=== PATIENT | male | born 1955 | race Hispanic/Latino ===

== ENCOUNTER → 2018-09-05 | Outpatient (CLI) | payer OTHER ==
[~2018-09-05] MED LIST: AMLO5TAB7 PO; AMOX-426 PO; ASPI-555 PO; CARV25TA PO; FURO40TA5 PO; GLIP5TAB11 PO; HYDR-4154 PO; ISOS30TA11 PO; NITR0.4T SL; SIMV20TA6 PO
== END | disposition home or self-care (01) ==
LOC: SHCH 15:14
PROVIDERS: ATTEND Internal Medicine Cardiovascular Disease
DX: I25.5 Ischemic cardiomyopathy (principal); Z95.0 Presence of cardiac pacemaker
CPT/HCPCS: 36415; 82565; 84520; 93306

== ENCOUNTER → 2018-09-05 | Outpatient (CLI) | payer OTHER ==
[2018-09-05 12:24] LABS: CREATININE 1.9 mg/dL (0.5-1.5)
== END | disposition home or self-care (01) ==
LOC: LAB 09:41
PROVIDERS: ATTEND Otolaryngology Plastic Surgery within the Head & Neck
DX: H90.3 Sensorineural hearing loss, bilateral (principal)
CPT/HCPCS: 36415; 82565; 84520

== ENCOUNTER 2019-03-21 19:30 | Inpatient (IN) | payer OTHER ==
[~2019-03-21] VITALS: Ht 180.3 cm; Wt 166.6 kg
[~2019-03-21 19:30] MED LIST changes: -AMLO5TAB7 PO; +AMLO5TAB9 PO
[2019-03-21] MEDS ORDERED: FUROSEMIDE 10 MG/ML 4ML VIAL ONE (19:42)
[2019-03-21] MEDS ORDERED: ASPIRIN 325 MG TABLET ONE (19:42)
[2019-03-21 20:04] LABS: BASOPHILS % (AUTO) 1.3 % (0.0-5.0); EOSINOPHILS % (AUTO) 2.2 % (0.0-8.0); HEMATOCRIT 34.4 % (42-54); LYMPHOCYTES % (AUTO) 13.6 % (21.0-51.0); MEAN CORPUSCULAR HGB CONC 31.5 g/dL (32.0-36.0); MEAN CORPUSCULAR VOLUME 79.2 fL (79-99); MONOCYTES % (AUTO) 9.5 % (3.0-13.0); NEUTROPHILS % (AUTO) 73.4 % (40.0-77.0); PLATELET COUNT (AUTO) 200 K/uL (130-400); RED BLOOD CELL COUNT(AUTO) 4.34 MIL/uL (4.50-6.20); RED CELL DISTRIBUTION WIDTH 18.4 % (11.0-15.5); WHITE BLOOD COUNT (AUTO) 7.6 K/uL (4.8-10.8)
[2019-03-21 20:17] LABS: CREATININE 1.6 mg/dL (0.5-1.5); POTASSIUM 3.7 mmol/L (3.5-5.1)
[2019-03-21 20:20] LABS: INR 1.32 (0.85-1.15); PARTIAL THROMBOPLASTIN TIME 33.1 SEC (26.3-35.5); PROTHROMBIN TIME 13.8 SEC (9.6-11.6)
[2019-03-21 20:22] LABS: BILIRUBIN,DIRECT 0.4 mg/dL (0.0-0.3); BILIRUBIN,TOTAL 1.3 mg/dL (0.2-1.0); TOTAL PROTEIN, SERUM 8.3 g/dL (6.0-8.3)
[2019-03-21 20:37] LABS: ABG BASE EXCESS 2.1 mmol/L (-2.0-3.0); ABG HCO3 23.2 mmol/L (21.0-28.0); ABG OXYGEN SATURATION 99.8 % (95.0-99.0); ABG PCO2 27 mmHg (35-48)
[2019-03-21 20:56] LABS: B-TYPE NATRIURETIC PEPTIDE 815 pg/mL (0-100)
[2019-03-21] MEDS ORDERED: NITROGLYCERIN 1GM/1 INCH PACKET TD ONE (23:23)
--- NOTE | 2019-03-22 00:30 | NUR ---
Received report fron ER Nurse Mojgan ,pt is on Bipap and pt. is afib on ECG.
[2019-03-22 01:33] VITALS: BP 168/83
[2019-03-22] MEDS ORDERED: SPIR100T5 PO (02:30)
[2019-03-22] MEDS ORDERED: CARV25TA PO (02:30)
[2019-03-22] MEDS ORDERED: GLIP10TA9 PO (02:30)
[2019-03-22] MEDS ORDERED: HYDR100T27 PO (02:30)
[2019-03-22] MEDS ORDERED: INSLAN SQ (02:30)
[2019-03-22] MEDS ORDERED: FURO80TA3 PO (02:30)
[2019-03-22 04:00] VITALS: BP 157/78
--- NOTE | 2019-03-22 04:00 | NUR ---
Pt. refused Bipap he said he feels he cant breathe at this time.RT notified and pt. placed on nasal cannula.
[2019-03-22 04:39] LABS: HEMATOCRIT 35.8 % (42-54); MEAN CORPUSCULAR HEMOGLOBIN 24.4 pg (27.0-33.0); MEAN CORPUSCULAR VOLUME 78.8 fL (79-99); NUCLEATED RED BLOOD CELLS 0.1 % (0.0-0.19); PLATELET COUNT (AUTO) 233 K/uL (130-400); RED BLOOD CELL COUNT(AUTO) 4.54 MIL/uL (4.50-6.20); RED CELL DISTRIBUTION WIDTH 18.1 % (11.0-15.5)
[2019-03-22 05:12] LABS: ALBUMIN 3.2 g/dL (3.5-5.0); BILIRUBIN,TOTAL 1.4 mg/dL (0.2-1.0); CREATININE 1.5 mg/dL (0.5-1.5); POTASSIUM 3.4 mmol/L (3.5-5.1); TOTAL PROTEIN, SERUM 8.7 g/dL (6.0-8.3)
[2019-03-22] MEDS ORDERED: DiphenhydrAMINE HCL 50 MG/ML VIAL IVP PRN (05:30)
[2019-03-22] MEDS ORDERED: GUAIFENESIN-DM 200/20 MG 10 ML PO PRN (05:30)
[2019-03-22] MEDS ORDERED: NITROGLYCERIN 0.4 MG SL TAB SL PRN (05:30)
[2019-03-22] MEDS ORDERED: DIPHENHYDRAMINE HCL 25 MG CAPSULE PO PRN (05:30)
[2019-03-22] MEDS ORDERED: ZOLPIDEM TARTRATE 5 MG TAB PO PRN (05:30)
[2019-03-22] MEDS ORDERED: ONDANSETRON HCL 4 MG/2 ML VIAL IVP PRN (05:30)
[2019-03-22] MEDS ORDERED: GUAIFENESIN SUGAR-FREE 100 MG/5 ML UDCUP PO PRN (05:30)
[2019-03-22] MEDS ORDERED: MAG HYDROX/AL HYDROX/SIMETH ES 30 ML SUSP UDCUP PO PRN (05:30)
[2019-03-22] MEDS ORDERED: ACETAMINOPHEN 325 MG TAB PO PRN ×2 (05:30)
[2019-03-22] MEDS ORDERED: LACTULOSE 20 GM/30 ML UDCUP PO PRN (05:30)
[2019-03-22] MEDS ORDERED: CLONIDINE HCL 0.1 MG TABLET PO PRN (05:30)
[2019-03-22] MEDS: NITROGLYCERIN 1GM/1 INCH PACKET TD SCH ×3 (06:27→21:50)
[2019-03-22 07:00] VITALS: BP 137/78
--- NOTE | 2019-03-22 07:49 | NUR ---
Bedside report given to incoming NOD using SBAR ,pt. appears calm and not in respiratory distress.All questions answered,pt remained afib on the monitor ,V/S remained stable.
[2019-03-22] MEDS ORDERED: FUROSEMIDE 10 MG/ML 2ML VIAL IVP SCH (09:00)
[2019-03-22] MEDS: METOPROLOL TARTRATE 50 MG TAB PO SCH ×2 (10:07→21:50)
[2019-03-22] MEDS: ASPIRIN 325 MG TABLET PO SCH (10:07)
[2019-03-22 11:00] VITALS: BP 164/88
[2019-03-22 16:00] VITALS: BP 140/91
--- NOTE | 2019-03-22 16:54 | NUR ---
D/C PLAN CM spoke to pt regarding d/c planning. Pt is [place] and lives with spouse. States he has provider about 4 hrs/day. Pt uses wk for ambulation. Plan to home. No needs verbalized or identified. CM to f/u Addendum: 03/22/19 at 1655 by KAREN CID CM Amended: Links added.
[2019-03-22] MEDS ORDERED: LIDOCAINE HCL-MPF 1% 2ML VIAL IVP PRN (18:45)
[2019-03-22] MEDS ORDERED: POTASSIUM CHLORIDE 10% ELIXIR 20 MEQ/15 ML UDCUP PO PRN (18:45)
[2019-03-22] MEDS ORDERED: POTASSIUM CHLORIDE 20MEQ/100ML 100 ML IV PRN (18:45)
[2019-03-22 20:01] VITALS: BP 146/84
[2019-03-22 20:12] LABS: ABG BASE EXCESS 0.8 mmol/L (-2.0-3.0); ABG HCO3 23.6 mmol/L (21.0-28.0); ABG OXYGEN SATURATION 95.1 % (95.0-99.0); ABG PCO2 33 mmHg (35-48)
[2019-03-22] MEDS: FUROSEMIDE 10 MG/ML 2ML VIAL IVP SCH (21:50)
[2019-03-22] MEDS: POTASSIUM CHLORIDE 20 MEQ ERTAB PO PRN ×2 (21:53→23:48)
[2019-03-23] VITALS (7 sets, daily range): BP systolic 137–167; BP diastolic 83–97
[2019-03-23 05:07] LABS: ALBUMIN 3.1 g/dL (3.5-5.0); BILIRUBIN,TOTAL 1.5 mg/dL (0.2-1.0); CREATININE 1.6 mg/dL (0.5-1.5); POTASSIUM 3.7 mmol/L (3.5-5.1); TOTAL PROTEIN, SERUM 8.7 g/dL (6.0-8.3)
[2019-03-23] MEDS: NITROGLYCERIN 1GM/1 INCH PACKET TD SCH ×2 (06:33→15:14)
[2019-03-23] MEDS ORDERED: POTASSIUM CHLORIDE 20 MEQ ERTAB PO PRN (09:00)
[2019-03-23] MEDS ORDERED: POTASSIUM CHLORIDE 10% ELIXIR 20 MEQ/15 ML UDCUP PO PRN (09:00)
[2019-03-23] MEDS: ASPIRIN 325 MG TABLET PO SCH (10:49)
[2019-03-23] MEDS: METOPROLOL TARTRATE 50 MG TAB PO SCH (10:49)
[2019-03-23] MEDS: FUROSEMIDE 10 MG/ML 2ML VIAL IVP SCH ×2 (10:50→21:44)
--- NOTE | 2019-03-23 13:52 | NUR ---
DR SULLIVAN PAGED BS 209; HAS NO COVERAGE;ORDERS RECEIVED AND ENTERED
[2019-03-23] MEDS ORDERED: DEXTROSE 50%-WATER 50 ML DISP.SYRIN IV PRN (14:00)
[2019-03-23] MEDS ORDERED: GLUCAGON 1MG KIT 1 MG ML IM PRN (14:00)
--- NOTE | 2019-03-23 15:00 | NUR ---
Dr. Steve at bedside, aware of pt experiencing chest pressure alejandro at 1455, states to consult Dr. Edwards; orders entered. Patient asymptomatic at this time.
--- NOTE | 2019-03-23 16:11 | NUR ---
Diet Education RD attempted Weight loss, Diabetes, CHF diet education with patient. Patient denies need for education as dietitian has been seen in the past. Patient also reports attends Heart Failure class and program under Dr. Edwards. Patient denied need to reference materials and handouts. Upon discussion with patient, patient demonstrates awareness to appropriate nutrition recommendations for weight loss, Diabetes diet, and CHF diet. RD to follow up. Please notify RD as additional nutritional concerns arise. Addendum: 03/23/19 at [address] RD Amended: Links added.
--- NOTE | 2019-03-23 16:13 | NUR ---
Dr. 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 Cristina from [facility] callled 16:[address] Aguiar is aware of the case will see tomorrow.
--- NOTE | 2019-03-23 16:40 | NUR ---
RD Notification Patient with CHF. Upon visit patient reports poor appetite but is encouraged to eat by . Patient reports bloating and some feelings of nausea. Patient reports has not felt nauseous today. Patient PO intake at 75%. Patient also reports weight loss of 30 lbs (7.3%) within the last 2-3 months. Patient to remain on Heart Healthy diet. Rec to add 1500mL fluid restriction secondary to moderate fluid retention (BLE 3+ Pitting edema as per EMR). Patient LBM 03/20/19. RD attempted to provide diet education for weight loss, Diabetes, CHF;Patient denies need for education and demonstrates previous knowledge of various nutrition recommendations. Patient monitored labs: BUN 30, Cr 1.6, GFR 47, Glu 200, T. Bili 1.5, ALT 9, Alk 165, Alb 3.1. RD to continue to monitor. Please notify RD as nutritional concerns arise. Thank you. Addendum: 03/23/19 at [address] RD Amended: Links added.
[2019-03-23] MEDS: INSULIN HUMULIN R 100 UNIT/ML 3ML SQ SCH ×2 (19:19→22:02)
[2019-03-23] MEDS: SIMVASTATIN 20 MG TABLET PO SCH (21:45)
[2019-03-23] MEDS: CARVEDILOL 25 MG TABLET PO SCH (21:45)
[2019-03-23] MEDS: SPIRONOLACTONE 25 MG TAB PO SCH (21:45)
[2019-03-23] MEDS: APIXABAN 5 MG TABLET PO SCH (21:45)
--- NOTE | 2019-03-23 22:10 | NUR ---
Pt. had episodes of shortness of breath during bed mobility,from lying to sitting up in bed,HOB kept elevated,RT notiifed and placed him on oxygen nasal cannula.
--- NOTE | 2019-03-24 | NUR ---
Pt. kept NPO at this time and he demonstrated understanding.According to pt. MD had spoke to him about being NPO status because of echocardiogram tomorrow.
[2019-03-24 03:00] VITALS: BP 132/70
[2019-03-24 03:40] LABS: HEMATOCRIT 32.4 % (42-54); MEAN CORPUSCULAR HEMOGLOBIN 24.3 pg (27.0-33.0); MEAN CORPUSCULAR HGB CONC 31.1 g/dL (32.0-36.0); MEAN CORPUSCULAR VOLUME 78.2 fL (79-99); NUCLEATED RED BLOOD CELLS 0.1 % (0.0-0.19); PLATELET COUNT (AUTO) 232 K/uL (130-400); RED BLOOD CELL COUNT(AUTO) 4.14 MIL/uL (4.50-6.20); RED CELL DISTRIBUTION WIDTH 18.4 % (11.0-15.5); WHITE BLOOD COUNT (AUTO) 6.7 K/uL (4.8-10.8)
[2019-03-24 04:03] LABS: BILIRUBIN,TOTAL 1.4 mg/dL (0.2-1.0); CREATININE 1.3 mg/dL (0.5-1.5); POTASSIUM 3.5 mmol/L (3.5-5.1)
[2019-03-24] MEDS: INSULIN HUMULIN R 100 UNIT/ML 3ML SQ SCH ×4 (06:15→21:46)
[2019-03-24 07:00] VITALS: BP 155/78
[2019-03-24] MEDS: METOLAZONE 2.5 MG TABLET PO SCH (08:57)
[2019-03-24] MEDS: APIXABAN 5 MG TABLET PO SCH ×2 (08:57→20:55)
[2019-03-24] MEDS: CARVEDILOL 25 MG TABLET PO SCH (09:00)
[2019-03-24] MEDS ORDERED: ASPIRIN 81MG TAB.CHEW PO SCH (09:00)
[2019-03-24] MEDS: SPIRONOLACTONE 25 MG TAB PO SCH ×2 (09:05→16:58)
[2019-03-24] MEDS: ISOSORBIDE MONO 30MG TAB SR PO SCH (09:06)
--- NOTE | 2019-03-24 09:08 | NUR ---
DEVICE INTERROGATION REP HERE TO INTERROGATE DEVICE.
[2019-03-24] MEDS: FUROSEMIDE 10 MG/ML 2ML VIAL IVP SCH ×2 (09:11→16:58)
[2019-03-24 11:00] VITALS: BP 159/89
[2019-03-24 16:00] VITALS: BP 139/93
[2019-03-24] MEDS: POTASSIUM CHLORIDE 20 MEQ ERTAB PO PRN (16:59)
[2019-03-24 19:00] VITALS: BP 109/85
[2019-03-24] MEDS ORDERED: CARVEDILOL 12.5 MG TABLET PO SCH ×2 (19:00→21:00)
[2019-03-24] MEDS: SIMVASTATIN 20 MG TABLET PO SCH (20:56)
[2019-03-24 23:00] VITALS: BP 133/95
[2019-03-25 03:00] VITALS: BP 149/75
[2019-03-25 03:58] LABS: HEMATOCRIT 33.3 % (42-54); LYMPHOCYTES % (AUTO) 12.4 % (21.0-51.0); MEAN CORPUSCULAR HGB CONC 31.7 g/dL (32.0-36.0); MEAN CORPUSCULAR VOLUME 78.9 fL (79-99); MONOCYTES % (AUTO) 12.4 % (3.0-13.0); NEUTROPHILS % (AUTO) 70.2 % (40.0-77.0); NUCLEATED RED BLOOD CELLS 0.2 % (0.0-0.19); PLATELET COUNT (AUTO) 203 K/uL (130-400); RED BLOOD CELL COUNT(AUTO) 4.22 MIL/uL (4.50-6.20); RED CELL DISTRIBUTION WIDTH 18.1 % (11.0-15.5); WHITE BLOOD COUNT (AUTO) 6.5 K/uL (4.8-10.8)
[2019-03-25 04:09] LABS: CREATININE 1.6 mg/dL (0.5-1.5); MAGNESIUM 1.9 mg/dL (1.80-2.40); POTASSIUM 3.2 mmol/L (3.5-5.1)
[2019-03-25 04:25] LABS: INR 1.52 (0.85-1.15); PARTIAL THROMBOPLASTIN TIME 37.8 SEC (26.3-35.5); PROTHROMBIN TIME 15.8 SEC (9.6-11.6)
[2019-03-25] MEDS: SPIRONOLACTONE 25 MG TAB PO SCH ×2 (05:00→15:29)
[2019-03-25] MEDS: FUROSEMIDE 10 MG/ML 2ML VIAL IVP SCH (05:19)
[2019-03-25] MEDS: INSULIN HUMULIN R 100 UNIT/ML 3ML SQ SCH ×4 (06:31→21:56)
[2019-03-25 07:58] VITALS: BP 138/84
[2019-03-25] MEDS ORDERED: MIDAZOLAM HCL 1 MG/ML 2ML VIAL IVP ONE (08:00)
[2019-03-25] MEDS ORDERED: FENTANYL CITRATE PF 50 MCG/1 ML 2ML VIAL IVP ONE (08:00)
[2019-03-25] MEDS ORDERED: AMIODARONE HCL 150 MG in DEXTROSE 5%-WATER 100 ML IV PRN (09:15)
[2019-03-25] MEDS: LIDOCAINE HCL 2% VISCOUS 15 ML UDCUP PO SCH (09:21)
[2019-03-25] MEDS ORDERED: AMIODARONE HCL 900 MG in DEXTROSE 5%-WATER 500 ML IV SCH (09:30)
[2019-03-25] MEDS ORDERED: AMIODARONE HCL 150 MG in DEXTROSE 5%-WATER 100 ML IV SCH (09:30)
[2019-03-25] MEDS ORDERED: MAGNESIUM 2GM PREMIX 50ML 50 ML IV PRN ×2 (09:30)
[2019-03-25] MEDS ORDERED: AMIODARONE HCL 900 MG in DEXTROSE 5%-WATER 500 ML IV PRN (09:45)
[2019-03-25 10:10] LABS: CREATININE 1.5 mg/dL (0.5-1.5); POTASSIUM 3.5 mmol/L (3.5-5.1)
[2019-03-25 11:42] VITALS: BP 130/84
[2019-03-25 15:19] VITALS: BP 145/75
[2019-03-25] MEDS: METOLAZONE 2.5 MG TABLET PO SCH (15:28)
[2019-03-25] MEDS: APIXABAN 5 MG TABLET PO SCH ×2 (15:28→21:00)
[2019-03-25] MEDS: ISOSORBIDE MONO 30MG TAB SR PO SCH (15:29)
[2019-03-25] MEDS: POTASSIUM CHLORIDE 20 MEQ ERTAB PO PRN (15:29)
[2019-03-25] MEDS: FUROSEMIDE 40 MG TABLET PO SCH (17:02)
[2019-03-25 19:55] VITALS: BP 167/80
[2019-03-25] MEDS: CARVEDILOL 25 MG TABLET PO SCH (21:41)
[2019-03-25] MEDS: SIMVASTATIN 20 MG TABLET PO SCH (21:41)
[2019-03-26 00:01] VITALS: BP 170/72
[2019-03-26 00:37] VITALS: BP 138/58
--- NOTE | 2019-03-26 03:41 | NUR ---
PATIENT RESTING IN BED. NO C/O CHEST PAIN OR SOB. CURRENTLY ON 2L NC. EXPERIENCING SOME ANXIETY FROM BEING IN ONE SPOT. SITTING AT BEDSIDE THROUGHOUT THE NIGHT TO HELP WITH RESTLESSNESS. PATIENT CURRENTLY ON AMIODARONE DRIP RUNNING 17ML/HR. HEART RATE A PACED 60-80S. BLE PITTING EDEMA. WILL CONTINUE TO MONITOR.
[2019-03-26 04:00] VITALS: BP 149/68
[2019-03-26] MEDS: SPIRONOLACTONE 25 MG TAB PO SCH (05:32)
[2019-03-26] MEDS: INSULIN HUMULIN R 100 UNIT/ML 3ML SQ SCH ×2 (06:29→12:52)
[2019-03-26 07:30] VITALS: BP 149/89
[2019-03-26] MEDS ORDERED: AMIO200T44 PO (08:14)
[2019-03-26] MEDS ORDERED: FURO40TA7 PO (08:14)
[2019-03-26] MEDS ORDERED: APIX5TAB PO (08:14)
[2019-03-26] MEDS ORDERED: METO2.5T2 PO (08:14)
[2019-03-26] MEDS ORDERED: HYDR-4154 PO (08:26)
[2019-03-26] MEDS: METOLAZONE 2.5 MG TABLET PO SCH (08:37)
[2019-03-26] MEDS: ISOSORBIDE MONO 30MG TAB SR PO SCH (08:37)
[2019-03-26] MEDS: APIXABAN 5 MG TABLET PO SCH (08:37)
[2019-03-26] MEDS: FUROSEMIDE 40 MG TABLET PO SCH (08:38)
[2019-03-26] MEDS: CARVEDILOL 25 MG TABLET PO SCH (08:38)
[2019-03-26] MEDS: HYDRALAZINE HCL 25 MG TABLET PO SCH ×2 (08:39→14:00)
[2019-03-26] MEDS: LIDOCAINE HCL 2% VISCOUS 15 ML UDCUP PO SCH (08:45)
[2019-03-26] MEDS ORDERED: AMIODARONE HCL 200 MG TABLET PO SCH (09:00)
[2019-03-26 11:16] VITALS: BP 140/74
--- NOTE | 2019-03-26 14:00 | NUR ---
in the floor give the discharge order.
--- NOTE | 2019-03-26 15:09 | NUR ---
Patient went home with Carrie, spouse [phone] in private vehicle. ARJUN Márquez took patient down to main entrance in wheel chair.
== END 2019-03-26 14:20 | disposition home or self-care (01) | DRG 291 ==
LOC: EDH 19:30 → EDHIP 22:45 → 2AH 03-22 01:00
PROVIDERS: ADMIT Family Medicine; ATTEND Family Medicine
PROC: 5A2204Z Restoration of Cardiac Rhythm, Single (ICD-10-PCS; principal; 2019-03-25)
DX: I13.0 Hypertensive heart and chronic kidney disease with heart failure and stage 1 through stage 4 chronic kidney disease, or unspecified chronic kidney disease (principal); I50.43 Acute on chronic combined systolic (congestive) and diastolic (congestive) heart failure; I48.1 Persistent atrial fibrillation; D68.59 Other primary thrombophilia; Z68.43 Body mass index [BMI] 50.0-59.9, adult; I47.2 Ventricular tachycardia; I25.10 Atherosclerotic heart disease of native coronary artery without angina pectoris; E66.01 Morbid (severe) obesity due to excess calories; E11.21 Type 2 diabetes mellitus with diabetic nephropathy; E11.22 Type 2 diabetes mellitus with diabetic chronic kidney disease; E78.5 Hyperlipidemia, unspecified; G47.33 Obstructive sleep apnea (adult) (pediatric); I25.5 Ischemic cardiomyopathy; I42.0 Dilated cardiomyopathy; N18.3 Chronic kidney disease, stage 3 (moderate); Z79.01 Long term (current) use of anticoagulants; Z79.82 Long term (current) use of aspirin; Z79.899 Other long term (current) drug therapy; Z95.810 Presence of automatic (implantable) cardiac defibrillator; Z95.5 Presence of coronary angioplasty implant and graft; Z91.19 Patient's noncompliance with other medical treatment and regimen; Z86.79 Personal history of other diseases of the circulatory system; Z83.3 Family history of diabetes mellitus
CPT/HCPCS: 36415; 36600; 71045; 80048; 80053; 80076; 82550; 82803; 82948; 83735; 83880; 84484; 85025; 85027; 85610; 85730; 92960; 93005; 93313; 94660; 97039; 99291; G0378; J0282; J1815; J1940; J2250; J3010; J3475; J3480; J3490; J7060

== ENCOUNTER → 2019-06-02 | Outpatient (CLI) | payer OTHER ==
[~2019-06-02] MED LIST changes: +AMIO200T44 PO; -AMLO5TAB9 PO; -AMOX-426 PO; +APIX5TAB PO; -FURO40TA5 PO; +FURO80TA3 PO; +GLIP10TA9 PO; -GLIP5TAB11 PO; +INSLAN SQ; +METO2.5T2 PO
== END | disposition home or self-care (01) ==
LOC: SHCH 13:19
PROVIDERS: ATTEND Internal Medicine Cardiovascular Disease
DX: I87.2 Venous insufficiency (chronic) (peripheral) (principal)
CPT/HCPCS: 93970